=== PATIENT | male | born 1995 | race Caucasian/White ===

== ENCOUNTER 2018-07-06 18:18 | Emergency (ER) | payer SELFPAY ==
[~2018-07-06] VITALS: Ht 180.3 cm; Wt 68.0 kg
[2018-07-06 18:33] VITALS: BP 126/77
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
--- NOTE | 2018-07-06 19:10 | NUR ---
report given to Pelon .
--- NOTE | 2018-07-06 19:15 | NUR ---
PT LAYING IN BED, RR EVEN AND UNLABORED. REPORTS BACK PAIN. ALL NEEDS MET AT THIS TIME.
[2018-07-06] MEDS ORDERED: KETOROLAC 60 MG/2 ML VIAL IM ONE (19:30)
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
--- NOTE | 2018-07-06 20:34 | NUR ---
PT WITH CLOTHES APPROPRIATE FOR WEATHER
[2018-07-06 20:35] VITALS: BP 136/78
== END 2018-07-06 20:35 | disposition home or self-care (01) ==
LOC: MED 18:18
DX: M54.9 Dorsalgia, unspecified (principal); F17.210 Nicotine dependence, cigarettes, uncomplicated
CPT/HCPCS: 81002; 96372; 99283; J1885